=== PATIENT | female | born 1945 | race Caucasian/White ===

== ENCOUNTER → 2017-03-09 | Outpatient (REF) | LOC: ZLAB.WCH 19:18 | DX: Z01.89 Encounter for other specified special examinations (principal) ==

== ENCOUNTER → 2017-10-09 | Outpatient (REF) | LOC: ZLAB.WCH 18:03 | DX: Z01.89 Encounter for other specified special examinations (principal) ==

== ENCOUNTER → 2017-11-03 | Outpatient (REF) | LOC: ZLAB.WCH 11:10 | DX: Z01.89 Encounter for other specified special examinations (principal) ==

== ENCOUNTER → 2021-07-01 | Outpatient (REF) | LOC: COL.CARD 07:15 | DX: R00.2 Palpitations (principal) ==

== ENCOUNTER 2023-06-29 18:27 | Inpatient (IN) | payer MEDICARE ==
[~2023-06-29] VITALS: Ht 162.6 cm; Wt 81.3 kg
[2023-06-29] MEDS ORDERED: NS 1,000 ML IV ONE (19:00)
[2023-06-29 19:09] LABS: HEMOGLOBIN 11.2 g/dl (12.5-16.0); MEAN CELL VOLUME 93 fl (80.0-100.0); MEAN CORPUSCULAR HEMOGLOBIN 31 pg (27-31); MEAN CORPUSCULAR HGB CONC 33 g/dl (33.0-37.0); MEAN PLATELET VOLUME 12.3 fl (7.4-10.4); PLATELET COUNT 172 K/mm3 (130-400); RED BLOOD COUNT 3.63 M/mm3 (4.10-5.30); REDCELL DISTRIBUTION WIDTH-CV 12.8 % (11.5-14.5)
[2023-06-29 19:13] LABS: HEMATOCRIT 33.8 % (37.0-47.0)
[2023-06-29 19:25] LABS: ALBUMIN 3.5 g/dL (3.4-4.8); BILIRUBIN,TOTAL 0.6 mg/dL (0.2-1.2); CREATININE, serum 1.97 mg/dL (0.57-1.11); POTASSIUM 3.9 mEq/L (3.5-4.5); TOTAL PROTEIN 6.9 g/dl (6.2-8.1)
[2023-06-29 19:36] LABS: INR 1.1 (0.8-3.0); PROTHROMBIN TIME 11.8 SECONDS (9.7-12.8)
[2023-06-29 20:27] LABS: BAND 2 % (0-10); EOSINOPHIL 31 % (0-4); LYMPHOCYTE 32 % (20.0-51.0); NEUTROPHILS 29 % (42.0-75.2)
[2023-06-29] MEDS ORDERED: LIPITOR 40MG TA40 MG PO (21:19)
[2023-06-29] MEDS ORDERED: DEMADEX10 MG PO (21:22)
[2023-06-29] MEDS ORDERED: PRINIVIL20 MG PO (21:22)
[2023-06-29] MEDS ORDERED: PROAIR HFA0.09 MG/AC IH (21:24)
[2023-06-29] MEDS ORDERED: ASPIRIN 81M81 MG/TA2 PO (21:25)
[2023-06-29] MEDS ORDERED: COREG 6.256.25 MG/TA PO (21:26)
[2023-06-29] MEDS ORDERED: NITROSTAT0.4 MG/TAB SL (21:27)
[2023-06-29] MEDS ORDERED: PEPCID 20MG TAB20 MG PO (21:30)
[2023-06-29] MEDS ORDERED: NEURONTIN300 MG/CAP PO (21:31)
[2023-06-29] MEDS ORDERED: FISH OIL 500 M1 EAC1 PO (21:31)
[2023-06-29] MEDS ORDERED: DITROPAN 5MG TAB5 MG PO (21:32)
[2023-06-29] MEDS ORDERED: PROTONIX 40MG T40 MG PO (21:32)
[2023-06-29] MEDS ORDERED: Acetaminophen 325 MG TAB PO PRN (22:30)
[2023-06-29] MEDS ORDERED: Clopidogrel 75 MG TAB PO SCH (22:45)
[2023-06-29] MEDS ORDERED: Albuterol/Ipratropium 3 MG-0.5 MG/3 ML Neb Soln IH PRN (23:00)
[2023-06-29 23:19] VITALS: BP 151/82; PULSE 62; TEMP 98.5
[2023-06-29] MEDS ORDERED: Atorvastatin 40 MG TAB PO SCH (23:22)
[2023-06-29] MEDS ORDERED: Gabapentin 300 MG CAP PO SCH (23:25)
[2023-06-29] MEDS ORDERED: MULTIPLE VITAMI1 CAP PO (23:26)
[2023-06-29] MEDS ORDERED: VITAMIND3 5000 PO (23:27)
[2023-06-29] MEDS ORDERED: NS 1,000 ML IV SCH (23:45)
[2023-06-30] VITALS (13 sets, daily range): BP systolic 110–175; BP diastolic 54–72; PULSE 52–78; TEMP 98.1–98.5
[2023-06-30] MEDS ORDERED: OSCAL 500 TAB500 MG (00:08)
[2023-06-30] MEDS ORDERED: Albuterol/Ipratropium 3 MG-0.5 MG/3 ML Neb Soln IH SCH (02:00)
--- NOTE | 2023-06-30 07:20 | NUR ---
PATIENT AWAKE AND ALERT, SITTING UP IN BED. BED ALARM TURNED ON. PATIENT DENEIS ANY NEEDS OR COMPLAINTS AT THIS TIME. CALL LIGHT WITHIN REACH. FALL PRECAUTIONS IN PLACE.
[2023-06-30] MEDS ORDERED: Carvedilol 6.25 MG TAB PO SCH ×2 (08:00→17:00)
[2023-06-30] MEDS ORDERED: Lisinopril 20 MG TAB PO SCH (09:00)
[2023-06-30] MEDS ORDERED: Oxybutynin 5 MG TAB PO SCH (09:00)
[2023-06-30] MEDS ORDERED: Multivitamin TAB PO SCH (09:00)
[2023-06-30] MEDS ORDERED: Cholecalciferol (Vit D3) 5000 Units Capsule PO SCH (09:00)
[2023-06-30] MEDS ORDERED: Famotidine 20 MG TAB PO SCH ×2 (09:00→21:00)
[2023-06-30 09:15] LABS: COLLECTION METHOD CLEAN CATCH
[2023-06-30 09:21] LABS: PH 6.5 (5.0-8.5); URINE APPEARANCE CLEAR (CLEAR/HAZY); URINE BLOOD NEGATIVE (NEGATIVE); URINE COLOR YELLOW (YELLOW); URINE GLUCOSE NEGATIVE (NEGATIVE); URINE KETONE NEGATIVE (NEGATIVE); URINE NITRATE NEGATIVE (NEGATIVE); URINE PROTEIN(semi-quant) NEGATIVE (NEGATIVE)
--- NOTE | 2023-06-30 09:36 | NUR ---
PATIENT WITH COMPLAINTS OF CHEST PRESSURE, THAT TURNS TO PAIN AND RADIATES UP TO THE JAW. PATIENT GIVEN NITRO X3 ORDERED WITH NO IMPROVENMENT IN COMPLAINTS. MD NOTIFIED AND TROP, EKG AND CARDS CONSULTS ORDERED D/T RECENT CARDIAC HISTORY.
[2023-06-30] MEDS ORDERED: Isosorbide Mononitrate CR (24-HR) 30 MG TAB PO SCH (10:44)
[2023-06-30] MEDS ORDERED: Nitroglycerin 0.1 MG/HR DAILY PATCH TD SCH (10:44)
[2023-06-30] MEDS ORDERED: Mag/Al Hydrox/Simeth Susp 30 ML CUP PO PRN (10:45)
--- NOTE | 2023-06-30 10:52 | NUR ---
SW met with patient to complete intake. Patient provides she resides in [facility]. Patient provides that her daughter Valorie Walters is appointmentd as DPOA/HC [phone] and grand daughter Tara Norman [phone] has been appointed as alt-DPOA/HC. Patient states she does not utilize a DME, is independent with ADL's, and does not utilize home health services at this time. PCP is Dr. Fernando and pharmacy is [facility]. Patient provides her discharge plan is to return to her home in [place]. SW will continue to follow. Discharge plan: home
[2023-06-30] MEDS ORDERED: Omega-3 Fatty Acid Esters (OTC) 1,000 MG CAP PO SCH (10:55)
--- NOTE | 2023-06-30 10:59 | NUR ---
DR POWER AND HOSPITALIST DR BERGMAN NOTIFIED. PER [facility] [address] LIMITED ECHO FOR EF TO BE DONE TODAY OR TOMORROW BY WEEKEND TECH
[2023-06-30] MEDS ORDERED: Ondansetron 4 MG/2 ML VIAL IV PRN (14:15)
--- NOTE | 2023-06-30 14:46 | NUR ---
VIJAYA SHEARER CALLED AND WILL COME IN AM FOR ECHO.
--- NOTE | 2023-06-30 16:00 | NUR ---
PER PT NOTE PATIENT FULLY FUNCTIONING AND INDEPENDENT WITH ALL MOBILITY AND ACTIVITY. FALL PRECAUTIONS REMOVED. PATIENT AWARE
--- NOTE | 2023-06-30 17:30 | NUR ---
PATIENT AWAKE AND ALERT, SITTING UP IN BED. PATIENT DENIES ANY NEEDS OR COMPLAINTS AT THIS TIME. CALL LIGHT WITHIN REACH.
[2023-07-01] VITALS (10 sets, daily range): BP systolic 100–142; BP diastolic 48–84; PULSE 51–70; TEMP 98–99.2
[2023-07-01 06:55] LABS: HEMOGLOBIN 10.1 g/dl (12.5-16.0); MEAN CELL VOLUME 92 fl (80.0-100.0); MEAN CORPUSCULAR HEMOGLOBIN 31 pg (27-31); MEAN CORPUSCULAR HGB CONC 33 g/dl (33.0-37.0); PLATELET COUNT 167 K/mm3 (130-400); RED BLOOD COUNT 3.27 M/mm3 (4.10-5.30); REDCELL DISTRIBUTION WIDTH-CV 12.8 % (11.5-14.5)
[2023-07-01 07:07] LABS: CALCIUM 9.1 mg/dL (8.4-10.2); CREATININE, serum 1.17 mg/dL (0.57-1.11); MAGNESIUM 2.3 mg/dL (1.6-2.6); POTASSIUM 4.1 mEq/L (3.5-4.5)
[2023-07-01 07:20] LABS: HEMATOCRIT 30.2 % (37.0-47.0)
[2023-07-01 07:54] LABS: BAND 2 % (0-10); EOSINOPHIL 30 % (0-4); LYMPHOCYTE 34 % (20.0-51.0); NEUTROPHILS 31 % (42.0-75.2); PLATELET ESTIMATE NORMAL (NORMAL)
[2023-07-01 08:02] LABS: TROPONIN-I 7.289 ng/mL (0.00-0.033)
--- NOTE | 2023-07-01 08:12 | NUR ---
THIS RN JUST INFORMED OF CRITICAL >TROP CALLED TO VEGETABLE INSPECTOR. THIS RN WILL NOTIFY CARDIOLOGY AND MD
--- NOTE | 2023-07-01 08:15 | NUR ---
DR CASTILLO NOTIFIED OF CRITICAL TROP. NO NEW ORDERS AT THIS TIME.
[2023-07-01] MEDS ORDERED: Nitroglycerin 0.4 MG/HR DAILY PATCH TD SCH (09:00)
--- NOTE | 2023-07-01 15:10 | NUR ---
CARDIOLOGY NOTIFED PATIENT HR WAS IN THE 40S FOR A FEW HOURS AFTER AM 12.5MG COREG DOSE. COREG DOSE SHOWS IT HAS INCREASED TP 25MG TABLET. PER PHYSICIAN PUT PATIENT BACK ON ORIGINAL DOSE OF COREG (12.5MG PO).
--- NOTE | 2023-07-01 16:18 | NUR ---
PATINET AWAKE AND ALERT, SITTING UP IN BED. PATIENT DENIES ANY NEEDS OR COMPLAINTS AT THIS TIME. CALL LIGHT WITHIN REACH.
--- NOTE | 2023-07-01 16:46 | NUR ---
PATINET HR CURRENTLY 67BPM, COREG GIVEN
[2023-07-01] MEDS ORDERED: Carvedilol 25 MG TAB PO SCH (17:00)
[2023-07-01] MEDS ORDERED: Carvedilol 6.25 MG TAB PO SCH (17:00)
[2023-07-01] MEDS ORDERED: Benzonatate 100 MG CAP PO PRN (17:45)
[2023-07-02] VITALS (12 sets, daily range): BP systolic 105–146; BP diastolic 47–67; PULSE 53–69; TEMP 98.5–99.4
--- NOTE | 2023-07-02 07:02 | NUR ---
SPO2 ON RA 97%, CONSISTANT NPC. BS COARSA ALL LOBES.
--- NOTE | 2023-07-02 09:48 | NUR ---
MRI ON THE FLOOR TO GET PT AND ULTRASOUND AT BEDSIDE. MRI TOLD THIS NURSE THEY WILL ATTEMPT AT A LATER TIME. MRI CALLED BY THIS NURSE AND NOTIFIED THAT ULTRASOUND DONE AND CAN GET HER WHEN THEY CAN
--- NOTE | 2023-07-02 09:55 | NUR ---
MORNING MEDS NOT GIVEN DUE TO NPO STATUS FOR BRAIN MRI WITH CONTRAST. MRI CALLED AND THIS NURSE ASKED FOR TIME FRAME OF MRI TO GIVE MEDS. THIS NURSE WAS TOLD THAT NPO IS PREFERRED FOR MRIS OTHER THAN ABDOMEN FOR 2 HOURS MINIMUN BUT NOT REQUIRED. MRI OKAY WITH PT GETTING MEDS
--- NOTE | 2023-07-02 11:00 | NUR ---
PT SITTING ON SIDE OF THE BED UPON ENTERING. ASSESSMENT DONE, MEDS GIVEN PER ORDER. PT NPO FOR BRAIN MRI, CONFIRMED MED PASS WITH MRI. PT DENIES PAIN AT THIS TIME. INT TO RIGHT HAND PATENT. DURING STROKE SCALE ASSESSMENT DONE MILD RIGHT ARM DRIFT NOTED. PT DENIES NEEDS AND MRI AT BEDSIDE UPON THIS NURSE LEAVING. BED IN LOWEST POSITION, CALL LIGHT IN REACH
--- NOTE | 2023-07-02 11:11 | NUR ---
FORENSIC MANAGER IN ROOM AND PT HEADING TO MRI VIA WHEELCHAIR
[2023-07-02] MEDS ORDERED: Gadoterate 20 ML VIAL IV ONE (11:26)
--- NOTE | 2023-07-02 13:24 | NUR ---
Ivory Polisher met with patient to review IM form. Patient verbalized understanding and provided signature. SW placed form in chart and provided copy to patient who stated she plans to return home once discharged.
--- NOTE | 2023-07-02 18:19 | NUR ---
FAMILY AT BEDSIDE AND EDUCATED ON PROCEDURES TODAY AND PLAN FOR GUILHERME TOMORROW. PT AND FAMILY GIVEN HANDOUTS ON PROCEDURE BUT DONT FEEL COMFORTABLE SIGNING CONSENT UNTIL CARDIOLOGY AND ANESTHESIA TEACM EXPLAIN IT WITH RISKS. UNSIGNED CONSENT ON CHART
--- NOTE | 2023-07-02 18:38 | NUR ---
REPORT GIVEN TO TERRELL ANN
--- NOTE | 2023-07-02 19:38 | NUR ---
Assessment complete. A&Ox3. Denies pain/nausea/shortness of breath. Does have a dry cough. TELE reporting irreg sinus dys. Currently on RA. VS stable. Right hand 20g flushes without difficulty-no s/s of infiltration noted. Plan of care discussed for this shift to include meds/calling for questions/concerns. Verbalizes understanding. Call light in reach. Will monitor.
[2023-07-02] MEDS ORDERED: Famotidine 20 MG TAB PO SCH (21:00)
[2023-07-02] MEDS ORDERED: Menthol Cough/Sore Throat LOZENGE MM PRN (22:30)
--- NOTE | 2023-07-02 22:30 | NUR ---
Patient called asking if she could get an order for cough drops. Spoke with Dr. Woodward and new orders received and initiated. Patient also requesting a breathing tx. RT notified and on way to administer.
[2023-07-03] VITALS (18 sets, daily range): BP systolic 107–146; BP diastolic 41–102; PULSE 57–75; TEMP 97.5–98.9
--- NOTE | 2023-07-03 04:10 | NUR ---
Patient heard at nurses station coughing. [place] given per order. States she would like another breathing tx. RT notified and on way to administer. Will monitor.
--- NOTE | 2023-07-03 05:13 | NUR ---
Patient did not have a restful night. Has had a dry cough most of the night with intermittent wheezing noted. Has received nebs/tessalon perles/halls with some results. TELE reporting irreg sinus dys. VS stable. Currently on RA. Has been NPO since 0000 for GUILHERME. Denies current needs. Call light in [employer] monitor.
--- NOTE | 2023-07-03 06:40 | NUR ---
Bedside report given to TERRELL Valdivia.
[2023-07-03 06:45] LABS: BASO # 0.1 K/mm3 (0.0-0.2); BASO % 0.6 % (0.0-2.0); EOS # 1.7 K/mm3 (0.0-0.7); EOS % 13.5 % (0.0-4.0); GRAN # 6.1 K/mm3 (1.4-6.5); GRAN % 49.8 % (42.2-75.2); LYMPH # 3.2 K/mm3 (1.2-3.4); LYMPH % 25.9 % (20.0-51.0); MEAN CELL VOLUME 92 fl (80.0-100.0); MEAN CORPUSCULAR HGB CONC 34 g/dl (33.0-37.0); MEAN PLATELET VOLUME 11.9 fl (7.4-10.4); MONO # 1.2 K/mm3 (0.1-0.6); MONO % 9.8 % (1.7-9.3); PLATELET COUNT 185 K/mm3 (130-400); RED BLOOD COUNT 3.08 M/mm3 (4.10-5.30)
[2023-07-03 06:50] LABS: HEMATOCRIT 28.2 % (37.0-47.0); HEMOGLOBIN 9.5 g/dl (12.5-16.0); MEAN CORPUSCULAR HEMOGLOBIN 31 pg (27-31)
[2023-07-03 07:07] LABS: CREATININE, serum 1.19 mg/dL (0.57-1.11); POTASSIUM 4.2 mEq/L (3.5-4.5)
[2023-07-03 07:17] LABS: INR 1.1 (0.8-3.0); PROTHROMBIN TIME 12.2 SECONDS (9.7-12.8)
--- NOTE | 2023-07-03 08:44 | NUR ---
PT HAD AN EPISODE OF INCONTINENCE AND REPORTED BEING SO TIRED SHE DIDNT WAKE UP TO GO TO THE BATHROOM. PT WAS INDEPENDENTLY AMBULATING TO BATHROOM YESTERDAY WITH NO DIFFICULTIES. PT REPORTS INCREASED WEAKNESS TODAY. PT CLEANED AND LINEN CHANGED. SENIOR PATIENT ACCOUNT REPRESENTATIVE AT BEDSIDE UPON THIS NURSE LEAVING
[2023-07-03] MEDS ORDERED: Lidocaine PF 2% (20 MG/ML) 5 ML VIAL ONE (09:03)
[2023-07-03 09:38] LABS: CHOLESTEROL RISK RATIO 4.6
--- NOTE | 2023-07-03 09:55 | NUR ---
Pt back to [facility] 307 - bedside handoff perfomred with TERRELL Valdivia. Vitals initiated and stable. Pt AOx4. Call light in reach. No family present in room
--- NOTE | 2023-07-03 10:00 | NUR ---
PT BACK FROM HOUSEHOLD CHORES FOR GUILHERME. BP 129/102, PRN ORDER OF LABETOLOL FOR DBP 121-140. ALL OTHER VITALS STABLE. PT DENIES PAIN OR SHORTNESS OF BREATH AT THIS TIME. BED IN LOWEST POSITION, CALL LIGHT IN REACH
[2023-07-03] MEDS ORDERED: predniSONE 20 MG TAB PO SCH (10:30)
[2023-07-03] MEDS ORDERED: 1/2 NS 1,000 ML IV SCH (11:00)
--- NOTE | 2023-07-03 11:00 | NUR ---
NO ITEMS TO COLLECT COVID AND FLU. LAB CALLED AND NOTIFIED
--- NOTE | 2023-07-03 11:00 | NUR ---
PT LAYING IN BED UPON ENTERING. ASSESSMENT DONE, MEDS GIVEN PER ORDER. GUILHERME DONE THIS MORNING. PT DENIES PAIN BUT REPORTS INCREASED WEAKNESS. PT INCONTINENT OF URINE THIS MORNING AND MORE WEAK THAN YESTERDAY. PRODUCTIVE COUGH NOTED. PT DENIES NEEDS AND ASKING FOR LUNCH. BED IN LOWEST POSITION, CALL LIGHT IN REACH, BED ALARM ON
--- NOTE | 2023-07-03 13:00 | NUR ---
PER PHYSICAL THERAPY PT HAD ANOTHER EPISODE OF INCONTINENCE AND REPORTED THAT SHE DIDNT HAVE THE URGE TO GO BUT SHE JUST KNEW THAT SHE WAS WET.
--- NOTE | 2023-07-03 14:14 | NUR ---
LAB CALLED AND NOTIFIED AGAIN THAT WE DONT HAVE COVID PCR SWABS ON THE FLOOR AND TOLD US THAT IT WILL BE BROUGHT UP.
[2023-07-03] MEDS ORDERED: Fluticasone Nasal 50 MCG/Spray 16 GM BOTTLE NS SCH (21:00)
--- NOTE | 2023-07-03 21:00 | NUR ---
Patient resting in bed. Denies any pain or needs at this time. Assessment complete. IV in left AC infusing with no complications. IV in right wrist flushes easily with a small amount of leaking. Stroke assessment complete. Call light and personal items in reach. Bed in low position and bed alarm on.
[2023-07-04] VITALS (12 sets, daily range): BP systolic 121–182; BP diastolic 47–75; PULSE 52–79; TEMP 97.6–99.1
--- NOTE | 2023-07-04 06:00 | NUR ---
Patient sitting in bathroom. Assissted patient back to bed. No right sided weakness this morning. Stroke assessments have been 0 all night. Patient still has a cough this morning. Warm tea provided. No changes over night. Call light and personal items in reach. Bed in low position and bed alarm on.
[2023-07-04 07:00] LABS: CALCIUM 8.9 mg/dL (8.4-10.2); CREATININE, serum 1.13 mg/dL (0.57-1.11); POTASSIUM 4.7 mEq/L (3.5-4.5)
[2023-07-04 07:18] LABS: MAGNESIUM 2.5 mg/dL (1.6-2.6)
[2023-07-04 08:08] LABS: BASO # 0.1 K/mm3 (0.0-0.2); BASO % 0.4 % (0.0-2.0); EOS # 0.1 K/mm3 (0.0-0.7); EOS % 0.8 % (0.0-4.0); GRAN % 69.5 % (42.2-75.2); LYMPH # 2.8 K/mm3 (1.2-3.4); LYMPH % 19.6 % (20.0-51.0); MEAN CELL VOLUME 94 fl (80.0-100.0); MEAN CORPUSCULAR HGB CONC 33 g/dl (33.0-37.0); MEAN PLATELET VOLUME 11.6 fl (7.4-10.4); MONO # 1.3 K/mm3 (0.1-0.6); MONO % 9.3 % (1.7-9.3); PLATELET COUNT 231 K/mm3 (130-400); RED BLOOD COUNT 2.98 M/mm3 (4.10-5.30); REDCELL DISTRIBUTION WIDTH-CV 12.6 % (11.5-14.5)
[2023-07-04 08:11] LABS: HEMOGLOBIN 9.2 g/dl (12.5-16.0); MEAN CORPUSCULAR HEMOGLOBIN 31 pg (27-31)
--- NOTE | 2023-07-04 09:06 | NUR ---
Pt sitting up in bed, with feet dangling at bedside. Daughter in room. Pt is A&Ox4. VSS. S1S2 on tele. Pt has diminished lung sounds. Pt currently on RA but Respiratory Therapist is coming back into room to reassess. Previously on 2 L vai NC. ABD is rounded, soft, non-tender with audible bowel sounds. Palpable pulses in all extremities with good strength. IV in L AC is patent wiht 1/2 NS at 50 cc/hr. IV in R wrist is patent, no issues. Pt concerned about cost of rehab, OP OT/PT, IPR. pack mule worker (Kaela) talked with Pt. Pt has productive cough - clear, thick mucus. Per daughter, cough drains Pt's energy. No further needs at this time. Call light in reach and bed alarm on.
[2023-07-04] MEDS ORDERED: Amoxicillin/Clavulanate K+ 875/125 MG TAB PO SCH (09:30)
--- NOTE | 2023-07-04 14:08 | NUR ---
Please see "loop insertion procedure" sheet in chart for record of loop implant. Pt tolerated well. Bedside report to Yeny TEJADA. Dressing to loop site is clean dry and intact, tissue surrounding loop is soft.
--- NOTE | 2023-07-04 14:22 | NUR ---
This RN looked at loop recorder placement site with Lisandra from label fuser tender. Site is CDI with steristrips, gauze and tape bandage. Pt was educated on loop recorder device and post-procedure care. No further needs at this time. Call light in reach.
--- NOTE | 2023-07-04 15:07 | NUR ---
Can Pusher attended clinical rounds with the team and Hospitalist requested IPR screen. BELKIS contacted Krystyna, IPR Director to give referral. BELKIS met with patient and her daughter, Valorie to discuss other options, such as SNF, if IPR cannot accept. Valorie appeared to be resistant to SNF but would speak with patient about this. Krystyna reviewed patient and she would not be a candidate at this time. PT recommends home with HH services. BELKIS followed up with patient who prefers to return home at this time and is unsure if she would like HH. BELKIS also contacted patient's daughter, Valorie to review the above. Valorie would be open to Home Health services and will discuss this with patient. SW left [email or web address] list of HH agencies in patient's room. Discharge Plan: Home with HH
--- NOTE | 2023-07-04 17:18 | NUR ---
Pt sitting up in bed, eating dinner. Administered PM meds. Per Pt only has pain sometimes when coughing - pain is located in right thigh. Nothing recent. No further needs at this time. Call light in reach and bed alarm on.
--- NOTE | 2023-07-04 20:45 | NUR ---
Patient resting in bed. Denies any pain at this time. Patient is coughing a lot, prn tesslon pears and cough drop given. Assessment complete. IV in left AC infusing with no complications. IV in right wrist flushes easliy with a small amound of leaking. Needs met. Call light and personal items in reach. Bed in low position and bed alarm on.
[2023-07-04] MEDS ORDERED: Cephalexin 500 MG CAP PO SCH (21:00)
[2023-07-05 00:09] VITALS: BP_SYST 147
[2023-07-05 03:47] VITALS: BP 123/67; PULSE 67; TEMP 98.8
[2023-07-05 05:15] VITALS: BP_SYST 123
--- NOTE | 2023-07-05 06:25 | NUR ---
Patient resting in bed. Denies any pain at this time. Assissted patient to bathroom and back to bed without complications. No changes over night. Call light and personal items in reach. Bed in low position and bed alarm on.
[2023-07-05 07:18] LABS: BASO # 0.1 K/mm3 (0.0-0.2); BASO % 0.4 % (0.0-2.0); EOS # 0.1 K/mm3 (0.0-0.7); EOS % 0.4 % (0.0-4.0); GRAN # 7.4 K/mm3 (1.4-6.5); GRAN % 64.2 % (42.2-75.2); LYMPH # 2.9 K/mm3 (1.2-3.4); LYMPH % 24.6 % (20.0-51.0); MEAN CELL VOLUME 93 fl (80.0-100.0); MEAN CORPUSCULAR HGB CONC 33 g/dl (33.0-37.0); MEAN PLATELET VOLUME 11.9 fl (7.4-10.4); MONO # 1.2 K/mm3 (0.1-0.6); PLATELET COUNT 251 K/mm3 (130-400); RED BLOOD COUNT 2.82 M/mm3 (4.10-5.30); REDCELL DISTRIBUTION WIDTH-CV 12.5 % (11.5-14.5)
[2023-07-05 07:20] LABS: HEMATOCRIT 26.2 % (37.0-47.0); HEMOGLOBIN 8.6 g/dl (12.5-16.0); MEAN CORPUSCULAR HEMOGLOBIN 30 pg (27-31)
[2023-07-05 07:31] LABS: CALCIUM 8.8 mg/dL (8.4-10.2); CREATININE, serum 1.1 mg/dL (0.57-1.11); POTASSIUM 4.1 mEq/L (3.5-4.5)
[2023-07-05 08:22] VITALS: BP_SYST 142
--- NOTE | 2023-07-05 08:22 | NUR ---
Pt sitting up in bed. A&Ox4. VSS. S1S2. Lungs have expiratory wheezing in all lobes. ABD is rounded, soft, non-tender with audible bowel sounds. Palpable pulses with normal strength in all extremities. IV in R wrist is patent. IV in L AC is patent with NS at 50 cc/hr. Pt reports mild pain 2/10 in throat from coughing so much. Pt denies n/v, headache, dizziness. Have Pt set up with breakfast tray. No further needs at this time. Call light in reach and bed alarm on.
[2023-07-05 08:25] VITALS: BP 142/51; PULSE 59; TEMP 98.6
[2023-07-05] MEDS ORDERED: NEB MC (10:49)
[2023-07-05] MEDS ORDERED: IPRATROPIUM BROM3 M1 IH (10:50)
[2023-07-05] MEDS ORDERED: COREG12.5 MG PO (10:51)
[2023-07-05] MEDS ORDERED: LIPITOR 80MG80 MG PO (10:51)
[2023-07-05] MEDS ORDERED: AMOXICILLIN 8751 TAB PO (10:54)
[2023-07-05] MEDS ORDERED: PLAVIX 75MG TAB75 MG PO (10:54)
[2023-07-05 12:45] VITALS: BP_SYST 142
[2023-07-05 12:45] LABS: HEMATOCRIT 27.3 % (37.0-47.0)
[2023-07-05] MEDS ORDERED: TESSALON P100 MG/CAP PO (14:11)
[2023-07-05] MEDS ORDERED: PREDNISONE20 MG PO (14:12)
--- NOTE | 2023-07-05 14:15 | NUR ---
Grinder Dresser met with patient and her daughter at bedside following rounds. Patient may be able to discharge home today, which is what patient would like. Patient and her daughter do not feel Home Health is necessary at this time. SW encouraged them that her PCP could arrange this if she gets home and changes her mind. SW presented patient with the IM form and she verbalized understanding, then provided signature. SW placed form in chart and provided copy to patient. Discharge Plan; Home
--- NOTE | 2023-07-05 15:40 | NUR ---
Educated Pt and family on discharge information and packets. Answered questions. Discontinued Pt's IVs from R wrist and L AC. Took Pt off tele. No further needs. Transport Pt to car via WC.
== END 2023-07-05 15:42 | disposition home or self-care (01) | DRG 40 ==
LOC: COL.ER 18:27 → MEDICAL 21:38
PROVIDERS: Hospitalist; Internal Medicine; Nurse Practitioner Family; Physician Assistant; ADMIT Internal Medicine
PROC: 0JH602Z Insertion of Monitoring Device into Chest Subcutaneous Tissue and Fascia, Open Approach (ICD-10-PCS; principal; 2023-07-04)
DX: I97.820 Postprocedural cerebrovascular infarction following cardiac surgery (principal); I21.4 Non-ST elevation (NSTEMI) myocardial infarction; E87.20 Acidosis, unspecified; N17.9 Acute kidney failure, unspecified; E87.1 Hypo-osmolality and hyponatremia; J44.1 Chronic obstructive pulmonary disease with (acute) exacerbation; G81.91 Hemiplegia, unspecified affecting right dominant side; R29.704 NIHSS score 4; Z66 Do not resuscitate; E78.5 Hyperlipidemia, unspecified; K21.9 Gastro-esophageal reflux disease without esophagitis; G56.00 Carpal tunnel syndrome, unspecified upper limb; F32.A Depression, unspecified; F41.9 Anxiety disorder, unspecified; I25.10 Atherosclerotic heart disease of native coronary artery without angina pectoris; D72.829 Elevated white blood cell count, unspecified; I48.91 Unspecified atrial fibrillation; R13.10 Dysphagia, unspecified; Z20.822 Contact with and (suspected) exposure to COVID-19; D64.9 Anemia, unspecified; R27.0 Ataxia, unspecified; I12.9 Hypertensive chronic kidney disease with stage 1 through stage 4 chronic kidney disease, or unspecified chronic kidney disease; Y83.8 Other surgical procedures as the cause of abnormal reaction of the patient, or of later complication, without mention of misadventure at the time of the procedure; Y71.0 Diagnostic and monitoring cardiovascular devices associated with adverse incidents; J20.6 Acute bronchitis due to rhinovirus; N18.9 Chronic kidney disease, unspecified; R73.03 Prediabetes; G62.9 Polyneuropathy, unspecified; Z79.899 Other long term (current) drug therapy; Z79.82 Long term (current) use of aspirin; Z87.891 Personal history of nicotine dependence; Z23 Encounter for immunization
CPT/HCPCS: A9575; C1764; J1650; J2405; J2704; J7030; J7512; Q3014

== ENCOUNTER → 2023-10-18 | Outpatient (CLI) | payer MEDICARE ==
[~2023-10-18] MED LIST: AMOXICILLIN 8751 TAB PO; ASPIRIN 81M81 MG/TA2 PO; COREG 6.256.25 MG/TA PO; COREG12.5 MG PO; DEMADEX10 MG PO; DITROPAN 5MG TAB5 MG PO; FISH OIL 500 M1 EAC1 PO; IPRATROPIUM BROM3 M1 IH; LIPITOR 40MG TA40 MG PO; LIPITOR 80MG80 MG PO; MULTIPLE VITAMI1 CAP PO; NEB MC; NEURONTIN300 MG/CAP PO; NITROSTAT0.4 MG/TAB SL; OSCAL 500 TAB500 MG; PEPCID 20MG TAB20 MG PO; PLAVIX 75MG TAB75 MG PO; PREDNISONE20 MG PO; PRINIVIL20 MG PO; PROAIR HFA0.09 MG/AC IH; PROTONIX 40MG T40 MG PO; TESSALON P100 MG/CAP PO; VITAMIND3 5000 PO
== END ==
LOC: COL.RAD 12:10
DX: R51.9 Headache, unspecified (principal); M54.2 Cervicalgia; Z86.73 Personal history of transient ischemic attack (TIA), and cerebral infarction without residual deficits

== ENCOUNTER → 2023-11-07 | Outpatient (CLI) | payer MEDICARE ==
[~2023-11-07] MED LIST changes: +Albuterol 0.083% Neb Soln 2.5 MG/3 ML UD IH ONE
== END ==
LOC: COL.CARD 10:50
DX: R06.02 Shortness of breath (principal)